=== PATIENT | female | born 2000 | race Caucasian/White ===

== ENCOUNTER 2023-05-05 11:39 | Emergency (ER) | payer OTHER, SELFPAY ==
--- NOTE | ~2023-05-05 | CT_ITS ---
EXAMINATION: CTA BRAIN/CAROTID DATE: 05/05/2023 16:03 INDICATION: Difficulty speaking. Headache. TECHNIQUE: Computed tomographic angiography (CTA) of the head and neck was performed with 100 mL Omni paque-350 intravenous contrast. Multiplanar reconstructions and maximum intensity projection 3D-recon structions of the carotid arteries and of the intracranial arteries were created by the technologist on a separate workstation. Precontrast CT of the head was also obtained. Automated exposure control and iterative reconstruction technique were employed.The dose-length product was 1762.13 mGy-cm. COMPARISON: None. FINDINGS: Carotid arteries: Visualized portion of the thoracic aorta and the great vessels arising from the arch are normal in ca liber with no atherosclerotic plaque or dissection. There is 0% stenosis of the right carotid bulb re lative to normal distal artery lumen diameter (NASCET criteria). There is 0% stenosis of the left car otid bulb relative to normal distal artery lumen diameter. Bilateral vertebral arteries are codominan t and also without evident atherosclerotic plaque or dissection. Visualized portions of the upper марина gs are clear. There is residual thymic tissue in the anterior mediastinum. Likely positional reversal of the normal cervical lordosis. Head: No acute intracranial hemorrhage, acute infarction or abnormal extra axial fluid collection. Ventricl es are normal and symmetric. No mass/mass effect. No abnormally enhancing brain lesions on the post c ontrast images. The orbits, paranasal sinuses and mastoid air cells are normal. Intracranial arteries There is no hemodynamically significant stenosis in the vertebral, basilar and internal carotid arter ies. Vertebral arteries are codominant. There are no aneurysms identified. Both A1 and P1 segments a re patent. There are also patent bilateral posterior commuting arteries. Cerebral arterial arborizati on appears symmetric. IMPRESSION: 1. 0% stenosis of the right and left carotid bulbs relative to normal distal artery lumen diameter (N ASCET criteria). 2. Normal head CT and cerebral CT angiogram. Reviewed, dictated and finalized at location A. IMPRESSION: 1. 0% stenosis of the right and left carotid bulbs relative to normal distal ar maritza lumen diameter (NASCET criteria). 2. Normal head CT and cerebral CT angiogram.
[2023-05-05 12:29] VITALS: BP 115/79; PULSE 99; RESP 16; TEMP 36.7; O2SAT 100
[2023-05-05] MEDS: LACTATED RINGERS 1,000 ML 999 ML IV CONT (15:06)
[2023-05-05] MEDS: KETOROLAC 15 MG/ML VIAL (*BKC) IV PUSH (15:08)
[2023-05-05] MEDS: diphenhydrAMINE HCl INJ 50 MG/ML VIAL 25 MG IV PUSH (15:09)
[2023-05-05] MEDS: PROCHLORPERAZINE EDISYLATE 10 MG/2 ML VIAL IV PUSH (15:11)
[2023-05-05 15:23] LABS: Basophils Absolute Auto 0.1 K/mm3 (0.0-0.1); Basophils Percent Auto 0.7 % (0.2-1.2); Eosinophils Absolute Auto 0.1 K/mm3 (0-0.3); Eosinophils Percent Auto 1.8 % (0-4.4); Hematocrit 46.8 % (37.0-47.0); Hemoglobin 14.9 g/dL (12.0-15.0); Immature Granulocyte Absolute 0.02 K/mm3 (0.00-0.031); Immature Granulocyte Percent A 0.3 % (0-0.5); Lymphocytes Absolute Auto 1.99 K/mm3 (0.9-3.2); Mean Corpuscular HGB Conc 31.8 g/dl (32-36); Mean Corpuscular Hemoglobin 28.8 pg (26-34); Mean Corpuscular Volume 90.3 fl (80-100); Mean Platelet Volume 8.9 fl (7.4-10.4); Monocytes Absolute Auto 0.4 K/mm3 (0.1-0.6); Monocytes Percent Auto 5.1 % (2.6-8.5); Neutrophils Absolute Auto 5.1 K/mm3 (1.3-6.7); Neutrophils Percent Auto 66.1 % (45.5-73.1); Platelet Count Result 633 k/mm3 (150-375); Red Blood Count 5.18 M/mm3 (4.2-5.4); Red Cell Distribution Width 13.3 % (11.5-14.5); White Blood Count 7.7 K/mm3 (4.5-10.0)
[2023-05-05 15:34] LABS: Alanine Aminotransferase 15 U/L (6-35); Albumin Level 4.4 g/dL (3.5-5.1); Alkaline Phosphatase 70 U/L (38-126); Anion Gap 7 mmol/L (8-16); Aspartate Amino Transferase 20 U/L (14-36); Bilirubin,Total 0.4 mg/dL (0.2-1.3); Blood Urea Nitrogen 12 mg/dL (7-17); Carbon Dioxide 25 mmol/L (22-30); Chloride 105 mmol/L (98-107); Estimated CRCL calculation 136 ml/min; Estimated Glomerular Filt Rate > 60; Glucose 92 mg/dL (65-110); Potassium 4.2 mmol/L (3.4-5.0); Sodium 137 mmol/L (137-145)
--- NOTE | 2023-05-05 16:27 | ED.HA ---
HPI - Headache General Chief Complaint: Headache Stated Complaint: headache Time Seen by Provider: 05/05/23 13:48 Source: patient and RN notes reviewed Mode of arrival: ambulatory Limitations: no limitations History of Present Illness HPI Narrative: This is 22 year old female who presents for evaluation of headache. Patient states she developed right side headache on Friday. She describes pain has aching pain that gets better and worse. She reports initially she saw visual aura that resolved. She had associated nausea and vomiting. She was evaluated at [facility] and she was given medication. She was discharged to follow up with PCP on Friday. She was started on fiorecet and amitriptiline. She started having difficulty with her speech after starting these medication. She has stuttering speech. She also reports intermittent right arm numbness and tingling. She reports headache is worse with movement of her neck. Related Data Allergies Allergy/AdvReac Type Severity Reaction Status Date / Time No Known Allergies Allergy Verified 05/05/23 15:06 Review of Systems Review of Systems: All systems reviewed & are unremarkable except as noted in HPI and below PMFSH Past Medical History Medical History (Updated 05/06/23 @ 00:00 by Ibis Araiza) Patient denies medical problems Surgical History Surgical History (Updated 05/05/23 @ 16:32 by Sosa Pettit MD) No pertinent past surgical history Social History Social History (Updated 05/05/23 @ 16:32 by Sosa Pettit MD) Smoking status: Never smoker Alcohol intake: never Substance use: never Exam Const: General: no acute distress and alert Nutritional Appearance: well nourished Orientation/consciousness: patient oriented x3 Limitations: no limitations HENMT: Head: normal to inspection Ears: external ears normal and TM's normal bilaterally Mouth: Yes Normal oral and palatal mucosa present, Yes lip normal and Yes moist mucous membranes abnormal Throat: posterior oropharynx normal and uvula midline Eyes: Conjunctivae: conjunctivae normal Pupils: Equal, round and reactive pupils present EOM: EOMs intact bilaterally Direct Ophthalmoscopy: no photophobia Neck: Neck: normal visual inspection Chest: Chest palpation & inspection: normal inspection of the chest Resp: Effort & Inspection: normal respiratory effort Auscultation: clear to auscultation bilaterally Cardio: Rate: regular rate Rhythm: regular rhythm Heart sounds: no murmurs GI: GI Palp: Yes Soft to palpation, No Tenderness to palpation present (GI), No Guarding due to palpation present (GI) and No Rigid due to palpation Auscultation: normal bowel sounds Skin: General skin exam: normal color Rashes: no rashes Wounds: no wounds Neuro: General: patient oriented x3, moves all extremities and CN's II-XI intact bilaterally Cranial nerves: Yes Nystagmus not present Speech: Abnormal speech present stuttering Gait exam (Neuro): Normal gait present Psych: Mental Status: mental status grossly normal Affect: normal affect Attitude: cooperative Course Reevaluation(s) Reevaluation #1: PAtient states she feels better. Her speech issues is likely related to her medication. I offered observation for MRI and neurology consult. They decline at this time and will follow up with PCP. She will stop those medications. Date: 05/05/23 Time: 17:12 Vital Signs Vital signs: Vital Signs Temperature 98.0 F 05/05/23 12:29 Pulse Rate 99 05/05/23 12:29 Respiratory Rate 16 05/05/23 12:29 Blood Pressure 115/79 05/05/23 12:29 Pulse Oximetry 100 05/05/23 12:29 Oxygen Delivery Room Air 05/05/23 12:29 Temperature 98.0 F 05/05/23 12:29 Pulse Rate 99 05/05/23 12:29 Respiratory Rate 16 05/05/23 12:29 Blood Pressure 115/79 05/05/23 12:29 Pulse Oximetry 100 05/05/23 12:29 Oxygen Delivery Room Air 05/05/23 12:29 MDM - Headache Differential Diagnosis Diffe
== END 2023-05-05 17:45 | disposition home or self-care (01) ==
PROVIDERS: Emergency Provider General Practice; PCP Nurse Practitioner Family
DX: R51.9 Headache, unspecified (principal); R47.9 Unspecified speech disturbances
CPT/HCPCS: 36415; 70496; 70498; 80053; 81025; 85025; 96361; 96374; 96375; 99284; J0780; J1200; J1885; J7120; Q9967